=== PATIENT | female | born 1930 | race Caucasian/White ===

== ENCOUNTER 2016-06-04 19:31 | Day surgery (SDC) | payer OTHER ==
[~2016-06-04] VITALS: Ht 175.3 cm; Wt 81.8 kg
[~2016-06-04 19:31] MED LIST: ARTHRITIS PAIN650 M5 PO; ATIVAN0.5 MG PO; BIOFREEZE TP; CRESTOR5 MG PO; DIOVAN HCT 11 TABLET PO; NEXIUM40 MG PO; PEPCID20 MG PO; PROMETHAZINE HC25 M1 PO; PROMETHAZINE12.5 M1 PO; SYNTHROID100 MCG PO
[2016-06-04 20:24] LABS: BASOPHIL COUNT 0.1 K/uL (0-0.1); EOSINOPHIL (%) 0 % (0-5); HEMATOCRIT 44.5 % (36.0-46.0); IMMATURE GRANULOCYTE (%) 0.4 % (0.0-0.7); INSTRUMENT ABS NEUTROPHIL CT 6.7 K/uL; LYMPHOCYTE COUNT 2.2 K/uL (1.0-2.8); MCHC 34.2 G/DL (30.0-36.0); MCV 90.8 FL (83-99); MEAN PLAT.VOLUME 10.1 uM^3 (9.5-12.4); MONOCYTE (%) 7.2 % (3-12); MONOCYTE COUNT 0.7 K/uL (0-0.8); NEUTROPHIL (%) 69.3 % (45-76); NEUTROPHIL COUNT 6.7 K/uL (1.8-6.4); PLATELET COUNT 262 K/uL (156-360); RBC DIS.WIDTH-CV 13.2 % (11.8-14.6); WHITE BLOOD COUNT 9.7 K/uL (4.1-10.2)
[2016-06-04 20:32] LABS: CHLORIDE 106 mEq/L (99-109)
[2016-06-04 20:33] LABS: POTASSIUM 3.4 mEq/L (3.7-5.4); SODIUM 142 mEq/L (136-147)
[2016-06-04 20:34] LABS: GLUCOSE 129 mg/dL (70-99)
[2016-06-04 20:36] LABS: ANION GAP 15 MEQ/L (2-14)
[2016-06-04 20:38] LABS: GFR ESTIMATE (CALCULATED) 50 mL/min/
[2016-06-04 20:39] LABS: UREA NITROGEN (BUN) 18 mg/dL (9-23)
[2016-06-04 20:44] LABS: TROP-I INTERPRETATION NEGATIVE; TROPONIN-I < 0.01 ng/mL (0.0-0.30)
[2016-06-04 21:58] VITALS: BP 150/87
== END 2016-06-05 00:45 | disposition home or self-care (01) ==
LOC: EME 19:31 → SDC 21:58 → AMB 21:58 → SDC 06-05 00:45
PROVIDERS: Emergency Medicine
PROC: 0DC38ZZ Extirpation of Matter from Lower Esophagus, Via Natural or Artificial Opening Endoscopic (ICD-10-PCS; principal; 2016-06-04)
DX: T18.128A Food in esophagus causing other injury, initial encounter (principal); K44.9 Diaphragmatic hernia without obstruction or gangrene; K21.9 Gastro-esophageal reflux disease without esophagitis; K25.9 Gastric ulcer, unspecified as acute or chronic, without hemorrhage or perforation; R07.9 Chest pain, unspecified; I10 Essential (primary) hypertension; E78.5 Hyperlipidemia, unspecified; E07.9 Disorder of thyroid, unspecified; Z88.0 Allergy status to penicillin; Z88.1 Allergy status to other antibiotic agents; Z88.8 Allergy status to other drugs, medicaments and biological substances
CPT/HCPCS: 71010; 80048; 84484; 85025; 93005; 99281; 99284; J0330; J7030